=== PATIENT | male | born 1935 | race Caucasian/White ===

== ENCOUNTER 2018-01-22 05:39 | Day surgery (SDC) | payer MEDICARE, OTHER ==
[~2018-01-22] VITALS: Ht 182.9 cm; Wt 82.0 kg
[2018-01-22] MEDS ORDERED: FENTANYL PF 100 MCG/2ML ONE (07:01)
[2018-01-22 07:03] LABS: BASOPHILS # (AUTO) 0.01 x10^3/uL (0-0.1); BASOPHILS % (AUTO) 0 % (0-1); EOSINOPHILS # (AUTO) 0.19 x10^3/uL (0-0.4); EOSINOPHILS % (AUTO) 2 % (1-7); LYMPHOCYTES # (AUTO) 0.93 x10^3/uL (1-3.4); LYMPHOCYTES % (AUTO) 8 % (22-44); MD NO; MEAN CORPUSCULAR HEMOGLOBIN 25.5 pg (27.5-34.5); MEAN CORPUSCULAR HGB CONC 31.7 g/dL (33.2-36.2); MEAN CORPUSCULAR VOLUME 80.3 fL (81-97); MEAN PLATELET VOLUME 8.3 fL (7.4-10.4); MONOCYTES % (AUTO) 11 % (2-9); NEUTROPHILS # (AUTO) 9.17 x10^3/uL (1.8-6.8); NEUTROPHILS % (AUTO) 80 % (42-75); PLATELET COUNT 279 x10^3/uL (130-400); RED BLOOD COUNT 4.59 x10^6/uL (4.38-5.82); RED CELL DISTRIBUTION WIDTH 21.3 % (9.4-14.8)
[2018-01-22] MEDS ORDERED: LIDOCAINE/PF 1%, 30ML ONE (07:07)
[2018-01-22] MEDS ORDERED: BUPIVACAINE/PF 0.5% ONE (07:07)
[2018-01-22] MEDS ORDERED: COCAINE TOPICAL SOLN 4%, 4ML ONE (07:08)
[2018-01-22] MEDS ORDERED: MUPIROCIN OINT 2%, 22GM ONE (07:08)
[2018-01-22] MEDS ORDERED: EPINEPHRINE 1 MG/ML, 1ML ONE (07:08)
[2018-01-22] MEDS ORDERED: OXYMETAZOLINE NASAL SPRAY 0.05%, 15ML ONE (07:09)
[2018-01-22] MEDS ORDERED: BACITRACIN OINT 500U/GM, 15 GM ONE (07:09)
[2018-01-22 07:12] LABS: ALANINE AMINOTRANSFERASE 36 U/L (12-78); ALBUMIN 1.9 g/dL (3.4-5.0); ANION GAP 5 mmol/L (5-15); CALCIUM 8.5 mg/dL (8.5-10.1); CHLORIDE 107 mmol/L (98-107)
[2018-01-22] MEDS ORDERED: LACTATED RINGERS 1,000 ML IV SCH (07:12)
[2018-01-22 07:14] LABS: ALKALINE PHOSPHATASE 102 U/L (45-117); BILIRUBIN,TOTAL 0.9 mg/dL (0.2-1.0); TOTAL PROTEIN 7.4 g/dL (6.4-8.2)
[2018-01-22 07:16] VITALS: BP 85/62
[2018-01-22] MEDS ORDERED: METOPROLOL PO (07:25)
[2018-01-22] MEDS ORDERED: SIMV40TA3 PO (07:25)
[2018-01-22] MEDS ORDERED: MULT-658 PO (07:25)
[2018-01-22] MEDS ORDERED: CEPH-376 PO (07:25)
[2018-01-22] MEDS ORDERED: ASPI-496 PO (07:25)
[2018-01-22 07:26] LABS: INTERNATIONAL NORMALIZED RATIO 1.2 (0.93-1.1); PROTHROMBIN TIME 12.4 Seconds (9.6-11.5)
[2018-01-22] MEDS ORDERED: ROCURONIUM 10 MG/ML,10ML ONE (07:27)
[2018-01-22] MEDS ORDERED: PROPOFOL 10 MG/ML, 20ML ONE (07:27)
[2018-01-22] MEDS ORDERED: PHENYLEPHRINE 10 MG/ML ONE (07:27)
[2018-01-22] MEDS ORDERED: DEXAMETHASONE 4 MG/ML, 1ML ONE (07:27)
[2018-01-22] MEDS ORDERED: NOVALOG INSULIN PUMP SQ (07:28)
[2018-01-22] MEDS ORDERED: KETAMINE 10 MG/ML, 20ML ONE (07:39)
[2018-01-22] MEDS ORDERED: THROMBIN 5,000 UNIT VIAL TP ONE ×2 (07:49→07:56)
[2018-01-22] MEDS ORDERED: COCAINE TOPICAL SOLN 4%, 4ML TP ONE (07:56)
[2018-01-22] MEDS ORDERED: OXYMETAZOLINE NASAL SPRAY 0.05%, 15ML NAS ONE (07:57)
[2018-01-22] MEDS ORDERED: OXYcodone 5 MG/5 ML ORAL.SOL UDC PO PRN (08:30)
[2018-01-22] MEDS ORDERED: FENTANYL PF 100 MCG/2ML IV PRN (08:30)
[2018-01-22] MEDS ORDERED: hydrALAzine 20 MG/ML, 1ML IV PRN (08:30)
[2018-01-22] MEDS ORDERED: MEPERIDINE/PF 25MG/0.5ML IVPush PRN (08:30)
[2018-01-22] MEDS ORDERED: LABETALOL 5MG/ML, 20ML IV PRN (08:30)
[2018-01-22] MEDS ORDERED: morphine SULFATE 10 MG/ML, 1ML IV PRN (08:30)
[2018-01-22] MEDS ORDERED: ALBUTEROL SULFATE 2.5 MG/3 ML NPPB PRN (08:30)
[2018-01-22] MEDS ORDERED: ONDANSETRON 2MG/ML, 2ML IVPush PRN (08:30)
[2018-01-22] MEDS ORDERED: PROMETHAZINE 25 MG/ML, 1ML IV PRN (08:30)
[2018-01-22] MEDS ORDERED: MIDAZOLAM 1 MG/ML, 2ML IV PRN (08:30)
[2018-01-22] MEDS ORDERED: PROMETHAZINE 12.5 MG SUPP PR PRN (08:30)
== END 2018-01-22 10:50 ==
LOC: OUT 05:39
PROVIDERS: ATTEND Specialist
DX: R04.0 Epistaxis (principal); E11.9 Type 2 diabetes mellitus without complications; Z79.4 Long term (current) use of insulin; Z79.82 Long term (current) use of aspirin; Z86.14 Personal history of Methicillin resistant Staphylococcus aureus infection
CPT/HCPCS: 30901; 30905; 36415; 80053; 82962; 85025; 85610; 93005; J0171; J1100; J2370; J2704; J3010; J3490; J7120